=== PATIENT | male | born 1970 | race Caucasian/White ===

== ENCOUNTER 2022-02-24 17:37 | Emergency (ER) | payer MEDICAID ==
[2022-02-24] MEDS ORDERED: Lidocaine 1% 5 ML VIAL INJECT ONE (17:47)
[2022-02-24] MEDS ORDERED: Diphtheria,Pertussis(Acell),Tetanus Vaccine 0.5 ML Syringe IM ONE (18:17)
== END 2022-02-24 18:41 | disposition home or self-care (01) ==
LOC: VM.ED 17:37
DX: S61.217A Laceration without foreign body of left little finger without damage to nail, initial encounter (principal); Z23 Encounter for immunization; W26.8XXA Contact with other sharp object(s), not elsewhere classified, initial encounter
CPT/HCPCS: 12004; 90471; 90715; 99282-25; 99283